=== PATIENT | female | born 1985 | race Caucasian/White ===

== ENCOUNTER 2022-09-04 19:12 | Emergency (ER) | payer SELFPAY ==
[~2022-09-04] VITALS: Ht 167.6 cm; Wt 69.0 kg
[2022-09-04 19:19] VITALS: BP 140/90
== END 2022-09-04 20:00 | disposition left against medical advice (07) ==
LOC: ER 19:12
DX: F41.9 Anxiety disorder, unspecified (principal); Z53.21 Procedure and treatment not carried out due to patient leaving prior to being seen by health care provider
CPT/HCPCS: 99281